=== PATIENT | female | born 1960 | race Caucasian/White ===

== ENCOUNTER 2016-07-19 09:24 | Emergency (ER) | payer OTHER ==
[2016-07-19] MEDS ORDERED: NS 1,000 ML IV ONE (09:40)
[2016-07-19] MEDS ORDERED: KETOROLAC 30 MG/1 ML SDV IVP ONE (10:09)
[2016-07-19] MEDS ORDERED: METOCLOPRAMIDE 10 MG/2 ML VIAL IVP ONE (10:09)
--- NOTE | 2016-07-19 10:51 | UCPHY ---
H & P Patient Type: Established Time Seen by Provider: 07/19/16 10:09 HPI/ROS: This pt. reports onset of L. hemicranial SUERO on Wednesday described as sharp and stabbing in nature. The location is parietal and adventist on the left. Peak intensity is current 10/10. On Wednesday she went to Dr. Gonzales is office and was treated by a mid-level practitioner with Toradol IM with 6 hours of partial relief only to have recurrence and persistence since that time. She has associated nausea but no vomiting. She reports associated photophobia, hyperacusis, and mild dizziness in addition. She has had similar headaches in the past that she attributes to cluster or migraine headaches. She was prescribes isometh/acet/dichlor on wednesday but reports no relief from that medication ROS: No fevers or chills. No recent trauma. HEENT: No visual changes. She reports no nasal congestion. Neuro: No numbness tingling or focal weakness. Pulmonary: No complaints GI: Nausea but no vomiting 10 point ROS is otherwise negative Source: Patient Exam Limitations: No limitations - Medical/Surgical History PMH: No cardiac history. No family history of premature coronary artery disease. The patient has had neuro imaging-an MRI of her brain within the last few years. This was done at [facility] here locally. Hx Asthma: No Hx Chronic Respiratory Disease: No Hx Diabetes: No Hx Cardiac Disease: No Hx Renal Disease: No Hx Cirrhosis: No Hx Alcoholism: No Hx HIV/AIDS: No Hx Splenectomy or Spleen Trauma: No Other PMH: GERD, anxiety, migraines,hyst, section, polycystic ovary syndrome - Family History Significant Family History: No pertinent family hx - Social History Smoking Status: Never smoked Alcohol Use: Occasionally Drug Use: None - Physical Exam Exam: Physical exam: Vital signs are normal General: Patient is in no acute distress. HEENT: Is no external evidence of trauma on exam. Eyes: Pupils are equal and reactive to light. Extraocular motions are intact. Optic fundi: Clear with no papilledema or hemorrhage. Nose atraumatic. Ears: Clear bilaterally with no hemotympanum. Oropharynx: No dental trauma or malocclusion. No intraoral lacerations. Neck: Trachea is midline with no stridor. The patient has no midline neck tenderness and retains a full range of motion without increase in pain. Lungs: Clear to auscultation bilaterally Cardiac: Regular rate and rhythm no murmur gallop or rub. Chest: Nontender. Abdomen: Soft nontender no organomegaly Back: Nontender Extremities: Atraumatic Neuro: GCS of 15. Cranial nerves II through XII intact. Cerebellar exam is normal as judged by symmetric rapid hand movements bilaterally. No pronator drift. No sensory or motor deficits are appreciated. Initial differential diagnosis: Migraine or cluster headache. Doubt adventist arteritis given lack of tenderness at that area. Doubt [employer] infection given lack of fever Allergies/Adverse Reactions: No Known Allergies Allergy (Verified 07/19/16 09:40) Home Medications: Medication Instructions Recorded DESVENLAFAXINE SUCCINATE [Pristiq] mg PO 06/25/12 Spironolactone 02/12/14 Vivelle-Dot 0.025MG (RX) 02/12/14 Lisdexamfetamine Dimesylate 05/13/16 [Vyvanse] SUMAtriptan [Imitrex 50 MG (*)] 50 - 100 mg PO Q2H PRN #6 tab 07/19/16 Medical Decision Making ED Course/Re-evaluation: IV normal saline bolus, Toradol, Reglan and Benadryl IV with reduction of headache down to mild discomfort. Her nausea also resolved field on recheck at 11:05 a.m. she feels much improved feels comfortable going home. I counseled her regarding migraine. Will put her on a trial of Imitrex. She will follow up with Dr. lopez-neurologist for any ongoing symptoms - Data Points Medications Given: Discontinued Medications Diphenhydramine HCl (Benadryl Injection) 25 mg IVP EDNOW ONE Stop: 07/19/16 10:10 Last Admin: 07/19/16 10:18 Dose: 25 mg Sodium Chloride (Ns) 1,000 mls @ 0 mls/hr IV ONCE ONE PRN Reason: Wide Open Stop: 07/19/16 09:41 Last Admin: 07/19/16 10:15 Dose: 1,000 mls Ketorolac Tromethamine (Toradol) 30 mg IVP EDNOW ONE Stop: 07/19/16 10:10 Last Admin: 07/19/16 10:22 Dose: 30 mg Metoclopramide HCl (Reglan Injection) 10 mg IVP EDNOW ONE Stop: 07/19/16 10:10 Last Admin: 07/19/16 10:20 Dose: 10 mg Departure - Departure Disposition: Home, Routine, Self-Care Clinical Impression: Dehydration Condition: Good Instructions: Migraine Headache (ED) Additional Instructions: Diagnosis: Migraine 2. Dehydration Plan: Drink plenty fluids Ibuprofen-600 mg per 6 hours as needed for pain Imitrex in addition if needed for headache Go to the emergency department for any significant worsening despite the treatment plan. Follow up with neurologist for any ongoing symptoms despite the treatment plan. Referrals: Victor Manuel Gonzales DO [Primary Care Provider] - As per Instructions Ender Vela DO [Medical Doctor] - As per Instructions Prescriptions: SUMAtriptan [Imitrex 50 MG (*)] 50 - 100 mg PO Q2H PRN #6 tab PRN Reason: migraine - PQRS PQRS Measurement: NA
[2016-07-19 11:53] VITALS: BP 138/98; PULSE 67; RESP 16; TEMP 97.7; O2SAT 96
== END 2016-07-19 11:40 | disposition home or self-care (01) ==
LOC: CED 09:24
DX: G43.909 Migraine, unspecified, not intractable, without status migrainosus (principal); E86.0 Dehydration
CPT/HCPCS: 96361-PO; 96374-PO; 96375-PO; 99215-PO; G0463-PO; J1200; J1885; J2765

== ENCOUNTER → 2016-09-25 | Emergency (ER) | payer OTHER | END | disposition left against medical advice (07) | LOC: CED 15:50 | DX: Z53.21 Procedure and treatment not carried out due to patient leaving prior to being seen by health care provider (principal) ==

== ENCOUNTER 2017-01-15 11:07 | Emergency (ER) | payer OTHER ==
[2017-01-15 11:23] VITALS: TEMP 98.2
[2017-01-15] MEDS ORDERED: METOCLOPRAMIDE 10 MG/2 ML VIAL IVP ONE (11:40)
[2017-01-15] MEDS ORDERED: NS 1,000 ML IV ONE (11:40)
[2017-01-15] MEDS ORDERED: KETOROLAC 30 MG/1 ML SDV IVP ONE (11:40)
[2017-01-15] MEDS ORDERED: DEXAMETHASONE 10 MG/ML VIAL IVP ONE (11:40)
--- NOTE | 2017-01-15 11:45 | EDPHY ---
H & P Time Seen by Provider: 01/15/17 11:36 HPI/ROS: HPI Migraine headache. 56-year-old female by private vehicle with her . This patient has a long history of migraine headaches. She sees a neurologist named Dr. Galo. She reports gradual onset typical migraine headache, left-sided associated with nausea and mild photophobia 3 days ago. The headache gradually increased in intensity. She took her home medications including sumatriptan without any relief. She has been seen in the emergency department in the past for migraine headaches. She states there is no difference between this headache and previous migraine headaches. ROS: Constitutional: No fever, no chills. No weakness. Eyes: No discharge. No changes in vision. As above. ENT: No sore throat. No nasal congestion or rhinorrhea. Respiratory: No cough. No shortness of breath. Cardiac: No chest pain, no palpitations. Gastrointestinal: No abdominal pain, no vomiting, no diarrhea. As above. Musculoskeletal: No back pain. No neck pain. No myalgias or arthralgias. Skin: No rashes. Neurological: As above. No focal weakness or altered sensation. Past medical history: As above. GERD, anxiety, , polycystic ovarian syndrome. Social history: Here with . No alcohol. Nonsmoker. Physical Exam: General Appearance: Alert, no distress. This patient is responding to questions appropriately and in full sentences. This patient appears well- hydrated and well-nourished. Eyes: Pupils equal and round no pallor or injection. No lid edema, erythema or injection. Mild photophobia. No nystagmus. Respiratory: There are no retractions, lungs are clear to auscultation with good air movement bilaterally. Cardiovascular: Regular rate and rhythm. No murmur. Neurological: Motor sensory function is grossly intact. Cranial nerves are normal. Gait is normal. Skin: Warm and dry, no rashes. Musculoskeletal: Neck is supple and nontender. No cervical or submandibular lymphadenopathy. No pain on flexion of the neck. Extremities are symmetrical. All joints range without pain or impingement. Psychiatric: No agitation. No depression. Database: EKG: Imaging: Procedures: Emergency department course: IV placed. Patient placed on a monitor. Medication allergies reviewed. No contraindications to NSAIDs. No history of kidney dysfunction. Vital signs reviewed and are normal. She is afebrile. She was initially given 10 mg of IV Decadron, 10 mg of IV Reglan, 25 mg of IV Benadryl and 30 mg of IV Toradol. She was started on IV normal saline with 500 cc to 1 L to be given over the next 1-2 hours. 12:55 p.m., patient re-evaluated. She reports that her headache pain has improved but is still present at a 5/10 down from a 10/10. She will be given 0.5 mg of IV hydromorphone. This will be repeated x1 as needed. 1:25 p.m., patient re-evaluated. She is feeling much better at this time. She reports that her headache is almost gone. She feels comfortable going home with her will drive. She is scheduled to see her neurologist early next week. Return to emergency department precautions were reviewed with her. All of her questions were answered. She was discharged home in good condition with her . Differential Diagnosis: The differential diagnosis on this patient includes but is not limited to migraine headache. Subarachnoid hemorrhage, cavernous sinus thrombosis, sagittal sinus thrombosis, temporal arteritis, meningitis, encephalitis unlikely. This represents a partial list of diagnoses considered. These considerations are based on history, physical exam, past history, reassessment and diagnostic testing. Smoking Status: Never smoked Constitutional: Initial Vital Signs Temperature (C) 36.8 C 01/15/17 11:18 Heart Rate 64 01/15/17 11:18 Respiratory Rate 18 01/15/17 11:18 Blood Pressure 135/82 H 01/15/17 11:18 O2 Sat (%) 97 01/15/17 11:18 O2 Delivery Mode Room Air Allergies/Adverse Reactions: No Known Allergies Allergy (Verified 01/15/17 11:23) Home Medications: Medication Instructions Recorded DESVENLAFAXINE SUCCINATE [Pristiq] mg PO 06/25/12 Isomethept/Dichlphn/Acetaminop 07/19/16 SUMAtriptan [Imitrex 50 MG (*)] 50 - 100 mg PO Q2H PRN #6 tab 07/19/16 GABAPENTIN 01/15/17 Medical Decision Making - Data Points Medications Given: Discontinued Medications Dexamethasone (Decadron Injection) 10 mg IVP EDNOW ONE Stop: 01/15/17 11:41 Last Admin: 01/15/17 12:02 Dose: 10 mg Diphenhydramine HCl (Benadryl Injection) 25 mg IVP EDNOW ONE Stop: 01/15/17 11:41 Last Admin: 01/15/17 11:59 Dose: 25 mg Hydromorphone HCl (Dilaudid) 0.5 mg IVP EDNOW ONE Stop: 01/15/17 12:55 Last Admin: 01/15/17 13:03 Dose: 0.5 mg Sodium Chloride (Ns) 1,000 mls @ 0 mls/hr IV ONCE ONE; Wide Open PRN Reason: Protocol Stop: 01/15/17 11:41 Last Admin: 01/15/17 11:40 Dose: 1,000 mls Ketorolac Tromethamine (Toradol) 30 mg IVP EDNOW ONE Stop: 01/15/17 11:41 Last Admin: 01/15/17 12:09 Dose: 30 mg Metoclopramide HCl (Reglan Injection) 10 mg IVP EDNOW ONE Stop: 01/15/17 11:41 Last Admin: 01/15/17 12:04 Dose: 10 mg Departure - Departure Disposition: Home, Routine, Self-Care Clinical Impression: Headache Condition: Good Instructions: Migraine Headache (ED) Additional Instructions: Read and follow provided instructions. Follow-up with your neurologist as scheduled early next week. Continue taking your medications as prescribed. Do not take ibuprofen for the next 24 hours. Return to the emergency department for worsening headache, fever, neck pain, vomiting or other serious concerns. Referrals: GARY GALO [Non Staff Provider (MD)] - As per Instructions Stand Alone Forms: Work Excuse
[2017-01-15 12:19] VITALS: RESP 16
[2017-01-15] MEDS ORDERED: HYDROmorphONE/DILAUDID 1 MG/ML SYR IVP ONE (12:54)
[2017-01-15 13:51] VITALS: BP 137/71; PULSE 52; O2SAT 96
== END 2017-01-15 13:49 | disposition home or self-care (01) ==
LOC: CED 11:07
DX: R51 Headache (principal); E86.9 Volume depletion, unspecified
CPT/HCPCS: 96374; J1100; J1170; J1200; J1885; J2765